=== PATIENT | female | born 1995 | race Caucasian/White ===

== ENCOUNTER 2020-12-09 01:20 | Inpatient (IN) | payer OTHER ==
[2020-12-09 06:38] VITALS: BMI 27.8
[2020-12-09 07:11] LABS: BASO % 0.3 % (0-2.0); HEMOGLOBIN 12.3 GM/dL (10.7-15.3); LYMPH % 11.6 % (8-40); MCH 29.1 pg (25.7-33.7); MCHC 34.1 g/dl (32.0-36.0); MEAN CELL VOLUME 85.3 fl (80-96); MEAN PLT VOLUME 10.4 fl (7.5-11.1); MONO % 5.9 % (3.8-10.2); NEUT % 82.2 % (42.8-82.8); PLATELET COUNT 134 10^3/uL (134-434); RBC 4.22 M/mm3 (3.60-5.2); RDW 15.7 % (11.6-15.6); WHITE BLOOD COUNT 13.4 K/mm3 (4.0-10.0)
[2020-12-09 07:24] LABS: INR 0.99 (0.83-1.09); PROTHROMBIN TIME (PATIENT) 12.2 SEC (9.7-13.0)
[2020-12-09 07:27] LABS: ACTIVATED PTT 29.2 SECONDS (25.2-36.5)
[2020-12-09 07:31] LABS: CALCIUM 8.5 mg/dL (8.5-10.1)
[2020-12-09 07:32] LABS: BLOOD UREA NITROGEN 7.9 mg/dL (7-18)
[2020-12-09 07:35] LABS: CREATININE 0.5 mg/dL (0.55-1.3)
[2020-12-09] MEDS ORDERED: PROMETHAZINE HCL 25 MG/1 ML VIAL IVPUSH ONE (10:00)
[2020-12-09] MEDS ORDERED: BUTORPHANOL TARTRATE 1 MG/ML VIAL IVPB ONE (10:00)
[2020-12-09 10:33] LABS: HIV INTERPRETATION NEGATIVE (NEGATIVE)
[2020-12-09] MEDS: DEXTROSE 5%-LACTATED RINGERS 1,000 ML IV SCH (11:00)
[2020-12-09] MEDS ORDERED: OXYTOCIN 30 UNITS in 0.9% NS 30 UNIT/500 ML INFUS.BAG IVPB SCH (13:30)
[2020-12-09] MEDS ORDERED: OXYTOCIN 30 UNITS in 0.9% NS 30 UNIT/500 ML INFUS.BAG IVPB ONE (15:04)
[2020-12-09] MEDS ORDERED: OXYTOCIN 20 UNITS in 0.9% NS 20 UNIT/1,000 ML INFUS.BAG IV ONE (17:41)
[2020-12-09] MEDS ORDERED: PROMETHAZINE HCL 25 MG/1 ML VIAL ONE (18:15)
[2020-12-09] MEDS ORDERED: BUTORPHANOL TARTRATE 2 MG/ML VIAL ONE (18:15)
[2020-12-09] MEDS ORDERED: LIDOCAINE HCL 1% PRESERVATIVE FREE - 30ML VIAL ONE (21:51)
[2020-12-09] MEDS ORDERED: METHYLERGONOVINE MALEATE 0.2 MG/1 ML AMP IM PRN (22:18)
[2020-12-09] MEDS ORDERED: WITCH HAZEL 50% (TUCKS) 40 PAD/JAR PAD TP PRN (22:18)
[2020-12-09] MEDS ORDERED: BENZOCAINE 20% 57 GM BOTTLE TP PRN (22:18)
[2020-12-09] MEDS ORDERED: ACETAMINOPHEN 325 MG TABLET (FP) PO PRN (22:18)
[2020-12-09] MEDS ORDERED: BISACODYL 10 MG SUPP.RECT RC PRN (22:18)
[2020-12-09] MEDS ORDERED: BENZOCAINE 28 GM HEMORRHOIDAL OINTMENT TP PRN (22:18)
[2020-12-09] MEDS ORDERED: oxyCODONE HCL 5 MG TABLET PO PRN (22:18)
[2020-12-09] MEDS ORDERED: OXYTOCIN 20 UNITS in 0.9% NS 20 UNIT/1,000 ML INFUS.BAG IV SCH (22:30)
[2020-12-09] MEDS ORDERED: oxyCODONE HCL 5 MG TABLET ONE (23:39)
[2020-12-10 08:14] LABS: BASO % 0.2 % (0-2.0); EOS % 0.1 % (0-4.5); HEMATOCRIT 32.4 % (32.4-45.2); LYMPH % 15.9 % (8-40); MCH 29.2 pg (25.7-33.7); MEAN PLT VOLUME 10.3 fl (7.5-11.1); MONO % 7.4 % (3.8-10.2); NEUT % 76.4 % (42.8-82.8); PLATELET COUNT 131 10^3/uL (134-434); RBC 3.76 M/mm3 (3.60-5.2); RDW 16.2 % (11.6-15.6); WHITE BLOOD COUNT 12.5 K/mm3 (4.0-10.0)
[2020-12-10] MEDS: IBUPROFEN 600 MG TABLET (FP) PO PRN ×2 (08:36→14:47)
[2020-12-10] MEDS: PRENATAL VITAMINS W/ FOLIC ACID TABLET (FP) PO SCH (10:02)
[2020-12-10] MEDS: DEXTROSE 5%-LACTATED RINGERS 1,000 ML IV SCH (10:05)
[2020-12-10] MEDS ORDERED: SENNOSIDES/DOCUSATE COMBO (SENNA PLUS) TABLET (UD) PO PRN (22:00)
[2020-12-11] MEDS: IBUPROFEN 600 MG TABLET (FP) PO PRN (07:51)
[2020-12-11] MEDS: PRENATAL VITAMINS W/ FOLIC ACID TABLET (FP) PO SCH ×2 (07:52→10:25)
[2020-12-11 10:39] VITALS: BP 105/78; PULSE 85; TEMP 98
== END 2020-12-11 12:35 | disposition home or self-care (01) | DRG 807 ==
LOC: JDEL 01:20 → JLDR 04:20 → J3W 12-10 01:06
PROVIDERS: ADMIT Obstetrics & Gynecology; ATTEND Obstetrics & Gynecology
PROC: 10E0XZZ Delivery of Products of Conception, External Approach (ICD-10-PCS; principal; 2020-12-09)
DX: O48.0 Post-term pregnancy (principal); Z37.0 Single live birth; O70.0 First degree perineal laceration during delivery; Z3A.41 41 weeks gestation of pregnancy
CPT/HCPCS: 36415; 59409; 80048; 85025; 85610; 85730; 86780; 86850; 86900; 86901; 87389; C9803; U0003; U0005